=== PATIENT | male | born 1985 | race African-American/Black ===

== ENCOUNTER 2024-12-20 07:07 | Emergency (ER) | payer SELFPAY ==
[~2024-12-20] VITALS: Ht 182.9 cm; Wt 82.0 kg
[2024-12-20] MEDS ORDERED: LORAZEPAM 2MG/ML INJ IV ONE (07:15)
[2024-12-20] MEDS: HALOPERIDOL LACTATE 5MG/ML VIAL IM STA (08:46)
[2024-12-20] MEDS: DIPHENHYDRAMINE 50MG/ML VIAL IM STA (08:46)
[2024-12-20] MEDS: LORAZEPAM 2MG/ML INJ IM STA (08:46)
[2024-12-20] MEDS: SODIUM CHLORIDE 0.9% 1,000 ML IV ONE (09:20)
[2024-12-20 09:56] LABS: BASOPHILS % 0.3 % (0.0-2.0); EOSINOPHILS % 0.1 % (0.0-5.0); HEMATOCRIT. 40.5 % (42.0-52.0); HEMOGLOBIN. 13.2 g/dL (14.0-18.0); LYMPHOCYTES % 9.9 % (20.0-50.0); MEAN CORPUSCULAR HEMOGLOBIN 29.1 pg (28.0-32.0); MEAN CORPUSCULAR HGB CONC 32.7 g/dL (31.0-37.0); MEAN PLATELET VOLUME 9.4 fl (7.4-10.4); MONOCYTES % 8.4 % (2.0-8.0); NEUTROPHILS % 81.3 % (40.0-76.0); PLATELET 339 x1000/uL (130-400); RED BLOOD CELL COUNT 4.55 mill/uL (4.7-6.1); RED CELL DISTRIBUTION WIDTH 15.5 % (11.6-14.6)
[2024-12-20 10:17] LABS: CARBON DIOXIDE 20 mEq/L (21-32); CHLORIDE 107 mEq/L (98-107); POTASSIUM 4.1 mEq/L (3.5-5.1); SODIUM 139 mEq/L (136-145)
[2024-12-20 10:18] LABS: CALCIUM 8.8 mg/dL (8.7-10.4)
[2024-12-20 10:23] LABS: CREATININE 0.9 mg/dL (0.6-1.3); GLUCOSE 92 mg/dL (70-105); UREA NITROGEN BLOOD 12 mg/dL (9-23)
[2024-12-20 10:25] LABS: ACETAMINOPHEN < 2 ug/mL (10-30)
[2024-12-20 10:30] LABS: ETHANOL BLOOD < 10 mg/dL (<10)
[2024-12-20 11:30] LABS: CLARITY URINE CLEAR (CLEAR); COLOR URINE YELLOW (YELLOW); GLUCOSE URINE NEGATIVE (NEGATIVE); KETONES URINE 1+ (NEGATIVE); LEUKOCYTE ESTERASE URINE NEGATIVE (NEGATIVE); NITRITE URINE NEGATIVE (NEGATIVE); OCCULT BLOOD URINE NEGATIVE (NEGATIVE); PH URINE 5.5 (4.5-8.0); PROTEIN URINE TRACE (NEGATIVE)
[2024-12-20 11:57] LABS: BACTERIA URINE TRACE; SQUAMOUS EPITHELIAL CELL URINE RARE /lpf (RARE/1+)
[2024-12-20 11:59] LABS: RBC URINE 0-2 /hpf (0-2); WBC URINE 0-2 /hpf (0-2)
[2024-12-20 12:00] LABS: *AMPHETAMINES SCREEN URINE PRESUMPTIVE POSITIVE (NEGATIVE); *BARBITURATES SCREEN URINE NEGATIVE (NEGATIVE); *BENZODIAZEPINES SCREEN URINE NEGATIVE (NEGATIVE)
[2024-12-20 12:01] LABS: *COCAINE SCREEN URINE PRESUMPTIVE POSITIVE (NEGATIVE); CANNABINOID URINE SCREEN NEGATIVE (NEGATIVE); ECSTASY MDMA SCREEN URINE CONF.TEST INDICATED (NEGATIVE); METHADONE URINE SCREEN NEGATIVE (NEGATIVE); OPIATES URINE SCREEN NEGATIVE (NEGATIVE); PHENCYCLIDINE URINE SCREEN NEGATIVE (NEGATIVE)
[2024-12-21 09:00] VITALS: BP 109/66; PULSE 84; RESP 16; TEMP 36.9; O2SAT 98
== END 2024-12-21 09:53 | disposition home or self-care (01) ==
LOC: ER 07:07 → EDBD 07:07 → ER 12-21 09:53
DX: F29 Unspecified psychosis not due to a substance or known physiological condition (principal); J32.9 Chronic sinusitis, unspecified; Z59.00 Homelessness unspecified; Z79.899 Other long term (current) drug therapy; Z20.822 Contact with and (suspected) exposure to COVID-19
CPT/HCPCS: 80305; 80048; 81003; 80307; 80329; 80320; 85025; 36415; 71045; 70450; 93005; 96360; 96361; 96372; 99285; 87426; J1200; J1630; J2060; J7030; Z7610 ×2; G0480